=== PATIENT | male | born 1990 | race Caucasian/White ===

== ENCOUNTER 2018-02-17 00:57 | Emergency (ER) | payer OTHER, SELFPAY ==
[2018-02-17 01:05] VITALS: BP 124/86; PULSE 90; RESP 16; TEMP 36.6; O2SAT 100; BMI 19.8
[2018-02-17 01:18] LABS: Bilirubin Urine UA NEGATIVE (NEGATIVE); Glucose Urine UA NEGATIVE (Normal); Ketones Urine UA TRACE (NEGATIVE); Leukocyte Esterase Urine UA NEGATIVE (NEGATIVE); Nitrite Urine UA NEGATIVE (Negative); Occult Blood Urine UA 3+ (Negative); Protein Urine UA 2+ (Negative); Specific Gravity Urine UA >=1.030 (1.000-1.035); Urobilinogen Urine UA 0.2 E.U./dL (0.2)
[2018-02-17 01:19] LABS: Appearance Urine UA Turbid; Color Urine UA BROWN; RBC Urine >100/HPF (0-5/HPF)
[2018-02-17 01:23] LABS: Bacteria Urine Many (>30); Mucus Urine 1+ (Negative)
[2018-02-17 01:24] LABS: Culture Indicated Urine Specimen Cultured; WBC Urine 1-5/HPF (0-5/HPF)
--- NOTE | 2018-02-17 01:31 | DI.RAD.S_ITS ---
PROCEDURE: XR KUB INDICATIONS: flank pain left TECHNIQUE: One view of the abdomen acquired. COMPARISON: None. FINDINGS: Surgical changes and devices: None. Bowel: Bowel gas pattern is normal. There is moderate diffuse stool. Gas and stool is seen within the rectal vault. Incidentally noted 1 mm calcification projecting in the lower pole the right kidney, technically indeterminate although could be nephrolithiasis Bones: No suspicious bony lesions. Lateral curvature of the spine. IMPRESSION: 1 mm calcification projects in the region of the lower pole the right kidney, technically an age-indeterminate finding. No bowel obstruction. Diffuse moderate stool throughout the colon. Dictated by: Roderick Urrutia M.D. on 02/17/2018 at 7:49 Approved by: Roderick Urrutia M.D. on 02/17/2018 at 7:51
--- NOTE | 2018-02-17 01:33 | ED.MALEGU ---
HPI - Male Genitourinary General Chief complaint: Urogenital-Male Stated complaint: woke to back pain, bloody pee Time Seen by Provider: 02/17/18 01:02 Source: patient Mode of arrival: ambulatory Limitations: no limitations History of Present Illness HPI Narrative: This is a 27-year-old male comes to the emergency department with complaint flank pain on the left. Patient states it will come up from sleep this evening. States that comes a little bit around to the front side of his abdomen. He states that felt like the muscles were romaine in his abdomen. He is not having any testicular pain. He is not having any pain or frequency with urination but noted blood. Patient has not had fevers. He has felt nauseated, has not had vomiting. Did have any issues with bowel movements. He has not had similar symptoms in the past. He denies any other medical history, he denies any prior surgeries. Related Data Home Medications Medication Instructions Recorded Confirmed No Known Home Medications 02/17/18 02/17/18 Previous Rx's Medication Instructions Recorded tamsulosin [Flomax] 0.4 mg PO DAILY #5 cap 02/17/18 Allergies Allergy/AdvReac Type Severity Reaction Status Date / Time No Known Drug Allergies Allergy Verified 02/17/18 01:07 Review of Systems Review of Systems All systems reviewed & are unremarkable except as noted in HPI and below Constitutional Reports chills and Denies fever(s) Gastrointestinal Gastrointestinal: Reports abdominal pain (left side/flank), Denies change in bowel habits, Denies constipation, Denies diarrhea, Reports nausea and Denies vomiting Genitourinary Reports hematuria, Denies genital pain, Reports flank pain (left), Denies scrotal swelling, Denies testicular pain, Denies urinary frequency, Denies urinary incontinence and Denies urinary urgency [facility] Social History Smoking Status: Never smoker Exam Narrative Exam Narrative: GENERAL: Alert and oriented x three, Thin, well-appearing male in distress. HEENT: Head normocephalic, atraumatic, EOMI, pupils reactive, face symmetric, moist mucous membranes NECK: Supple, full range of motion CARDIOVASCULAR: Regular rate and rhythm without murmurs, rubs or gallops. RESPIRATORY: Breath sounds equal bilaterally, no wheezes rales or rhonchi. ABDOMEN: Soft, nontender. Normoactive bowel sounds all 4 quadrants. No guarding or rebound, rigidity, no mass : No CVA tenderness EXTREMITIES: Normal range of motion, no clubbing or edema. Neurovascularly intact NEUROLOGICAL: Cranial nerves II through XII grossly intact. Moving all extremities SKIN: Warm, dry, no petechiae, no rashes or lesions. Initial Vital Signs Initial Vital Signs: Vital Signs Temperature 97.8 F 02/17/18 01:05 Pulse Rate 90 02/17/18 01:05 Respiratory Rate 16 02/17/18 01:05 Blood Pressure 124/86 02/17/18 01:05 Pulse Oximetry 100 02/17/18 01:05 Course Orders Ordered: ED Orders 02/17/18 01:05 Urinalysis and Microscopic Stat Urine Culture Stat 02/17/18 01:31 XR KUB Stat 02/17/18 02:00 Complete Blood Count AUTO DIFF Stat 02/17/18 02:34 Basic Metabolic Panel Stat Discontinued Medications Ketorolac Tromethamine (Toradol) 30 mg IV NOW ONE Stop: 02/17/18 01:32 Last Admin: 02/17/18 03:38 Dose: 30 mg Tamsulosin HCl (Flomax) 0.4 mg PO NOW ONE Stop: 02/17/18 04:00 Last Admin: 02/17/18 04:33 Dose: 0.4 mg Tramadol HCl (Ultram 50mg Prepack) 1 bottle MISC SEEINSTR ONE Stop: 02/17/18 04:00 Last Admin: 02/17/18 04:33 Dose: 1 bottle Vital Signs - 8 hr 02/17/18 01:05 02/17/18 04:40 Temperature 97.8 F 98.7 F Pulse Rate 90 72 Respiratory Rate 16 16 Blood Pressure 124/86 100/64 Pulse Oximetry 100 99 MDM - Male Genitourinary Lab Data Attestation: I reviewed the patient's lab results. Result diagrams: 02/17/18 02:00 02/17/18 02:34 Lab Results 02/17/18 02/17/18 02/17/18 Range/Units 01:05 02:00 02:34 WBC 9.0 (4.5-11.0) X10^3/uL RBC 5.29 (4.5-5.9) X10^6/uL Hgb 15.4 (13.5-17.5) g/dL Hct 44.8 (41-53) % MCV 84.6 (80-100) fL MCH 29.0 (26-34) PG MCHC 34.3 (30-36) % RDW 12.7 (11.6-14.8) % Plt Count 219 (150-400) X10^3/uL Neut % (Auto) 73.0 (50-75) % Lymph % (Auto) 20.2 L (25-40) % [place] % (Auto) 5.7 (3-14) % Eos % (Auto) 0.5 L (2-4) % Baso % (Auto) 0.6 (0-2) % Neut # (Auto) 6600 H (2398-5184) /uL Sodium 142 (137-145) mmol/L Potassium 3.7 (3.4-5.1) mmol/L Chloride 101 (98-107) mmol/L Carbon Dioxide 30 (22-32) mmol/L BUN 18 (9-20) mg/dL Creatinine 1.00 (0.66-1.25) mg/dL Estimated GFR > 60.0 (>60) mL/min BUN/Creatinine Ratio 18.0 (6-22) Glucose 102 H (70-100) mg/dL Calcium 9.7 (8.4-10.2) mg/dL Urine Color Brown Urine Appearance Turbid Urine pH 5.0 (4.5-8.0) Ur Specific [place] >=1.030 H (1.000-1.035) Urine Protein 2+ H (Negative) Urine Glucose (UA) Negative (Normal) g/dL Urine Ketones Trace H (NEGATIVE) Urine Occult Blood 3+ H (Negative) Urine Nitrate Negative (Negative) Urine Bilirubin Negative (NEGATIVE) Urine Urobilinogen 0.2 (0.2) E.U./dL Ur Leukocyte Esterase Negative (NEGATIVE) Urine RBC >100/hpf (0-5/HPF) Urine WBC 1-5/hpf (0-5/HPF) Urine Bacteria Many (>30) H (None) Urine Mucus 1+ H (Negative) Ur Culture Indicated? Specimen cultured Micro UA Comment Not Reportable Imaging Data KUB: Attestation: I personally reviewed and interpreted this imaging study as follows: MDM Narrative Medical decision making narrative: Patients urine and symptoms consistent with a kidney stone. Um there is bacteria but no nitrates or leukocyte esterase of sent for culture. Lab work shows x-ray shows nap. No stone, stool and air throughout, no air fluid levels. Patient's pain had resolved before receiving any pain medications of Toradol was held. Patient was given Flomax, plan to follow up with primary care for recheck. Strainer given. Discharge Plan Departure Patient Disposition: Home Clinical Impression: Kidney stone Discharge Date/Time: 02/17/18 04:40 Interventions: ED Discharge Assessment Last Done: 02/17/18 04:40 Instructions: DI for Kidney Stones Activity Restrictions/Additional Instructions: Follow-up with primary care in the next 3-5 days for recheck if her symptoms have not resolved. Take Flomax once daily until gone You may take ibuprofen 800 mg every 8 hr as needed pain, you may also take Tylenol 1000 mg every 8 hr for pain in combination if needed. Return to the ER for fevers Greater than 100.4 F, rapidly increasing flank or abdominal pain, persistent vomiting, passing out,inability to urinate or other new or concerning symptoms Prescriptions: New tamsulosin [Flomax] 0.4 mg capsule 0.4 mg PO DAILY Qty: 5 RF: 0 No Action No Known Home Medications RF: 0
[2018-02-17 02:16] LABS: Add Manual Diff / Slide Review NO; Basophils Percent Auto 0.6 % (0-2); Eosinophils Percent Auto 0.5 % (2-4); Hematocrit 44.8 % (41-53); Hemoglobin 15.4 g/dL (13.5-17.5); Lymphocytes Percent Auto 20.2 % (25-40); Mean Corpuscular HGB Conc 34.3 % (30-36); Mean Corpuscular Volume 84.6 fL (80-100); Monocytes Percent Auto 5.7 % (3-14); Neutrophils Absolute Auto 6600 /uL (3000-5900); Platelet Count 219 X10^3/uL (150-400); Red Blood Cell Count 5.29 X10^6/uL (4.5-5.9); Red Cell Distribution Width 12.7 % (11.6-14.8)
[2018-02-17 02:55] LABS: Blood Urea Nitrogen 18 mg/dL (9-20); Calcium 9.7 mg/dL (8.4-10.2); Carbon Dioxide 30 mmol/L (22-32); Chloride 101 mmol/L (98-107); Estimated Glomerular Filt Rate > 60.0 mL/min (>60); Glucose 102 mg/dL (70-100); HEMOLYSIS < 15 (0-50); Potassium 3.7 mmol/L (3.4-5.1); Sodium 142 mmol/L (137-145)
[2018-02-17] MEDS: KETOROLAC 30 MG/ML VIAL IV (03:38)
[2018-02-17] MEDS: TAMSULOSIN 0.4 MG CAPSULE PO (04:33)
[2018-02-17] MEDS: TRAMADOL 50 MG PREPACK 1 BOTTLE MISC (04:33)
[2018-02-17 04:40] VITALS: BP 100/64; PULSE 72; RESP 16; TEMP 37.1; O2SAT 99
== END 2018-02-17 04:40 | disposition home or self-care (01) ==
PROVIDERS: Emergency Provider Emergency Medicine
DX: N20.0 Calculus of kidney (principal)
CPT/HCPCS: 36415; 74018; 80048; 81001; 85025; 87086; 96374; 99282; 99284; J1885